=== PATIENT | female | born 1950 | race Caucasian/White ===

== ENCOUNTER 2016-09-02 22:40 | Emergency (ER) | payer OTHER ==
[2016-09-02 23:16] LABS: BASOPHIL % 0.4 % (0-2); PLATELET COUNT 297 x10^3mcL (130-400)
[2016-09-02 23:32] LABS: BILIRUBIN TOTAL 0.8 mg/dL (0.20-1.00); CALCIUM 9.1 mg/dL (8.5-10.1); CARBON DIOXIDE 31.6 mmol/L (21-32); TOTAL PROTEIN, SERUM 7.7 g/dL (6.4-8.2)
[2016-09-02 23:34] LABS: ALBUMIN 3.3 g/dL (3.4-5.0); POTASSIUM SERUM 2.9 mmol/L (3.5-5.1)
[2016-09-03 01:30] VITALS: BP 142/84
== END 2016-09-03 01:30 | disposition home or self-care (01) ==
LOC: ED 22:40
PROVIDERS: Emergency Medicine
DX: E86.0 Dehydration (principal); E87.8 Other disorders of electrolyte and fluid balance, not elsewhere classified; K59.00 Constipation, unspecified; I10 Essential (primary) hypertension
CPT/HCPCS: J7030